=== PATIENT | female | born 1965 | race Caucasian/White ===

== ENCOUNTER → 2016-08-13 | Emergency (ER) | payer OTHER ==
[~2016-08-13] MED LIST: ACETAMINOPHEN/CAFFEINE/BUTALBITAL 1 TAB ONE; ACETAMINOPHEN/CAFFEINE/BUTALBITAL 1 TAB PO ONE; MECLIZINE HCL 25 MG TABLET (FP) ONE; MECLIZINE HCL 25 MG TABLET (FP) PO ONE; ONDANSETRON 4 MG/2 ML VIAL IVPB ONE; ONDANSETRON 4 MG/2 ML VIAL ONE; SODIUM CHLORIDE 1,000 ML IV STA
[2016-08-13 19:09] VITALS: BP 124/85; PULSE 82; TEMP 98; BMI 24.5
[2016-08-13 21:05] LABS: BASOPHIL 0.8 % (0-2.0); EOSINOPHIL 1.8 % (0-4.5); MCHC 32.8 g/dl (32.0-36.0); MEAN CELL VOLUME 82.3 fl (80-96); MEAN PLT VOLUME 10.4 fl (7.5-11.1); NEUTROPHILS 77.6 % (42.8-82.8); PLATELET COUNT 198 K/MM3 (134-434); RDW 13.7 % (11.6-15.6); WHITE BLOOD COUNT 8.8 K/mm3 (4.0-10.0)
[2016-08-13 21:53] LABS: ALBUMIN 3.7 g/dl (3.4-5.0); ALK PHOS 91 U/L (45-117); ANION GAP 10 (8-16); BILIRUBIN,TOTAL 0.4 mg/dL (0.2-1.0); CALCIUM 8.8 mg/dL (8.5-10.1); CO2 26 mmol/L (21-32); CREATININE 0.7 mg/dL (0.55-1.02); GLUCOSE,RANDOM 93 mg/dL (74-106); SGOT/AST 18 U/L (15-37); SGPT/ALT 26 U/L (12-78); TOT PROT 7.2 g/dl (6.4-8.2)
--- NOTE | 2016-08-13 22:13 | PDOC ---
History of Present Illness - General Chief Complaint: Migraine Headache Stated Complaint: DIZZY/HEADACHE/NAUSEA Time Seen by Provider: 08/13/16 19:58 History Source: Patient, Family Exam Limitations: Language Barrier - History of Present Illness Initial Comments: 08/13/16 22:08 51yo Female patient w/ PmHx: Vertigo presents to ED c/o dizziness, h/a, nausea which began yesterday morning as she got up to cook breakfast. Patient reports symptoms progress with patient having difficulty opening eyes do to "World Spinning." Last episode has been over 1 year ago. she denies fever, CP, Abd pain , back pain, diff breathing, rash, dysuria, hematuria, rectal bleeding, or any other complaints at this time. Associated Symptoms: reports: trouble walking, other (Room spinning). denies: slurred speech Past History - Travel Traveled outside of the country in the last 30 days: No Close contact w/someone who was outside of country & ill: No - Past Medical History Allergies/Adverse Reactions: Allergies Allergy/AdvReac Type Severity Reaction Status Date / Time No Known Allergies Allergy Verified 08/13/16 19:10 Home Medications: Ambulatory Orders Butalbit/Acetamin/Caff/Codeine [Fioricet-Cod [id number] Cap] 1 each PO Q6H PRN #20 capsule MDD 4 CAP 08/14/16 Meclizine HCl [Antivert -] 25 mg PO TID #21 tablet 08/14/16 Metoclopramide HCl [Reglan -] 10 mg PO Q8H PRN #30 tablet 08/14/16 - Psycho/Social/Smoking Cessation Hx Suicidal Ideation: No Smoking History: Never smoked Have you smoked in the past 12 months: No Information on smoking cessation initiated: No Hx Alcohol Use: No Drug/Substance Use Hx: No Neuro Specific PMHX - Complaint Specific PMHX Glaucoma: No Herniated Disk: No Laminectomy: No Migraine: No Multiple Sclerosis: No Neuropathy: No TIA: No Review of Systems - Review of Systems Able to Perform ROS?: Yes Is the patient limited Sinhala proficient: Yes Constitutional: No: Chills, Fever, Loss of Appetite, Malaise, Weakness HEENTM: No: Blurred Vision, Double Vision, Ear Pain, Ear Discharge, Throat Pain , Throat Swelling, Difficulty Swallowing, Mouth Swelling Respiratory: No: Cough, Orthopnea, Shortness of Breath, Stridor, Wheezing, Productive cough Cardiac (ROS): No: Chest Pain, Edema, Lightheadedness, Palpitations, Syncope, Chest Tightness ABD/GI: No: Constipated, Diarrhea, Nausea, Poor Appetite, Poor Fluid Intake, Vomiting : No: Burning, Dysuria, Flank Pain, Hematuria, Pain Musculoskeletal: No: Back Pain, Joint Pain, Muscle Weakness, Neck Pain Integumentary: No: Erythema, Rash Neurological: Yes: Dizziness. No: Headache, Numbness, Paresthesia, Seizure, Tingling, Tremors, Weakness, Unsteady Gait, Ataxia All Other Systems: Reviewed and Negative *Physical Exam - Vital Signs Last Vital Signs Temp Pulse Resp BP Pulse Ox 98.0 F 82 18 124/85 99 08/13/16 19:06 08/13/16 19:06 08/13/16 19:06 08/13/16 19:06 08/13/16 19:06 - Physical Exam General Appearance: Yes: Nourished, Appropriately Dressed, Mild Distress. No: Apparent Distress, Moderate Distress, Severe Distress HEENT: positive: EOMI, SHANNON, Normal ENT Inspection, Normal Voice, Symmetrical, TMs Normal, Pharynx Normal. negative: Pharyngeal Erythema, Tonsillar Exudate, Tonsillar Erythema, Nasal Congestion, Rhinorrhea, Sinus Tenderness, TM Bulging, TM Dull, TM Erythema Neck: positive: Trachea midline, Supple. negative: Stridor, Lymphadenopathy (R) , Lymphadenopathy (L) Respiratory/Chest: positive: Lungs Clear, Normal Breath Sounds. negative: Respiratory Distress, Accessory Muscle Use, Labored Respiration, Rapid RR, Stridor, Wheezing Cardiovascular: positive: Regular Rhythm, Regular Rate. negative: Edema, JVD, Murmur Gastrointestinal/Abdominal: positive: Normal Bowel Sounds, Soft. negative: Distended, Guarding, Rebound, Tenderness Musculoskeletal: positive: Normal Inspection. negative: CVA Tenderness Extremity: positive: Normal Capillary Refill, Normal Inspection, Normal Range of Motion. negative: Pedal Edema, Swelling Integumentary: positive: Normal Color, Dry, Warm Neurologic: positive: medical office assistant II-XII NML intact, Fully Oriented, Alert, Normal Mood/ Affect, Normal Response, Motor Strength 5/5 ED Treatment Course - LABORATORY CBC & Chemistry Diagram: 08/13/16 20:03 08/13/16 20:03 - ADDITIONAL ORDERS Additional order review: Laboratory Results 08/13/16 20:03 Sodium 142 Potassium 4.4 Chloride 106 Carbon Dioxide 26 Anion Gap 10 BUN 21 H Creatinine 0.7 Creat Clearance w eGFR > 60 Random Glucose 93 Calcium 8.8 Total Bilirubin 0.4 AST 18 ALT 26 Alkaline Phosphatase 91 Total Protein 7.2 Albumin 3.7 08/13/16 20:03 RBC 5.00 MCV 82.3 MCHC 32.8 RDW 13.7 MPV 10.4 Neutrophils % 77.6 Lymphocytes % 13.9 Monocytes % 5.9 Eosinophils % 1.8 Basophils % 0.8 - Medications Given in the ED: ED Medications Discontinued Medications Generic Name Dose Route Start Last Admin Trade Name Freq PRN Reason Stop Dose Admin Sodium Chloride 1,000 mls @ 1,000 mls/hr 08/13/16 20:30 08/13/16 20:58 Normal Saline - IV 08/13/16 21:29 1,000 mls/hr ASDIR STA Administration Meclizine HCl 50 mg 08/13/16 20:31 08/13/16 20:59 Antivert - PO 08/13/16 20:32 50 mg ONCE ONE Administration Ondansetron HCl 8 mg 08/13/16 20:31 08/13/16 20:59 Zofran Injection IVPB 08/13/16 20:32 8 mg ONCE ONE Administration *DC/Admit/Observation/Transfer Diagnosis at time of Disposition: Benign paroxysmal positional vertigo Qualifiers: Laterality: bilateral Qualified Code(s): H81.13 - Benign paroxysmal vertigo, bilateral - Discharge Dispostion Disposition: HOME Condition at time of disposition: Improved Admit: No - Prescriptions Prescriptions: Meclizine HCl [Antivert -] 25 mg PO TID #21 tablet Butalbit/Acetamin/Caff/Codeine [Fioricet-Cod [id number] Cap] 1 each PO Q6H PRN #20 capsule MDD 4 CAP PRN Reason: SEVERE HEADACHE Metoclopramide HCl [Reglan -] 10 mg PO Q8H PRN #30 tablet PRN Reason: Nausea - Referrals Referrals: Mohan Lovett MD [Primary Care Provider] - Naz Dillon MD [Staff Physician] - Sukhwinder Moctezuma MD [Staff Physician] - - Patient Instructions Printed Discharge Instructions: Benign Paroxysmal Positional Vertigo Additional Instructions: FOLLOW UP WITH DR. DILLON (NEUROLOGY). CALL TO SCHEDULE APPOINTMENT. ALSO, FOLLOW UP WITH DR. MOCTEZUMA (ENT) REGARDING VERTIGO. TAKE MEDICATIONS PRESCRIBED. RETURN IF SYMPTOMS WORSEN, OR ANY CONCERNS FOR FURTHER EVALUATION. NO WORK X 3 DAYS WITH REST. DRINK PLENTY FLUIDS. SEGUIMIENTO CON EL DR. DILLON (NEUROLOGA). LLAMAR PARA CALIFICAR LA JOSE D. DARIEN Ash, SEGUIMIENTO CON EL DR. MOCTEZUMA (ENT) EN RELACIN CON VERTIGO. GENNARO MEDICAMENTOS CINDY SE PRESCRIBE. DEVUELVA SI SNTOMAS WORSEN, O CUALESQUIERA PREOCUPACIONES PARA LA EVALUACIN ADICIONAL. NO TRABAJO X 3 SEGOVIA CON BRITT. DAJUAN LOS FLUIDOS DEL PLENTY. Print Language: VIETNAMESE - Post Discharge Activity Work/School Note: Back to Work
== END | disposition home or self-care (01) ==
LOC: JER 19:01
PROC: 3E033GC Introduction of Other Therapeutic Substance into Peripheral Vein, Percutaneous Approach (ICD-10-PCS; principal; 2016-08-13)
DX: H81.13 Benign paroxysmal vertigo, bilateral (principal)
CPT/HCPCS: 36415; 70450-TC; 80053; 85025; 96374; 99281-25

== ENCOUNTER 2017-02-06 07:00 | Day surgery (SDC) | payer OTHER ==
[2017-01-30 11:15] VITALS: BMI 27.9
--- NOTE | 2017-02-06 08:19 | HP ---
Admitting History and Physical - Admission Chief Complaint: Postmenopausal bleeding History of Present Illness: 51 yo with postmenopausal bleeding associated with abnormal sonogram is pre op for D&C Hysteroscopy. History Source: Patient Limitations to Obtaining History: No Limitations - Past Medical History ...LMP: 01/07/17 ...: No Heme/Onc: No: Anemia - Past Surgical History Past Surgical History: Yes: None - Smoking History Smoking history: Never smoked Have you smoked in the past 12 months: No - Alcohol/Substance Use Hx Alcohol Use: No History of Substance Use: reports: None - Social History History of Recent Travel: No Home Medications - Allergies Allergies/Adverse Reactions: Allergies Allergy/AdvReac Type Severity Reaction Status Date / Time No Known Allergies Allergy Verified 01/30/17 11:06 - Home Medications Home Medications: Ambulatory Orders NK [No Known Home Medication] 01/30/17 Review of Systems - Review of Systems Constitutional: reports: No Symptoms Eyes: reports: No Symptoms HENT: reports: No Symptoms Neck: reports: No Symptoms Cardiovascular: reports: No Symptoms Respiratory: reports: No Symptoms Gastrointestinal: reports: No Symptoms Genitourinary: reports: No Symptoms Breasts: reports: No Symptoms Reported Musculoskeletal: reports: No Symptoms Integumentary: reports: No Symptoms Neurological: reports: No Symptoms Endocrine: reports: No Symptoms Hematology/Lymphatic: reports: No Symptoms Psychiatric: reports: No Symptoms Pain Intensity: 0 Physical Examination Vital Signs: Vital Signs Temperature 98.2 F 02/06/17 07:37 Pulse Rate 72 02/06/17 07:37 Respiratory Rate 18 02/06/17 07:37 Blood Pressure 113/72 02/06/17 07:37 O2 Sat by Pulse Oximetry (%) 99 02/06/17 07:37 Constitutional: Yes: Well Nourished Eyes: Yes: Conjunctiva Clear HENT: Yes: Atraumatic Neck: Yes: Supple Cardiovascular: Yes: Regular Rate and Rhythm Respiratory: Yes: Regular Gastrointestinal: Yes: Normal Bowel Sounds Breast(s): Yes: WNL Musculoskeletal: Yes: WNL Extremities: Yes: WNL Neurological: Yes: Alert, Oriented ...Motor Strength: WNL Psychiatric: Yes: Alert, Oriented Problem List - Problems (1) Endometrial polyp Code(s): N84.0 - POLYP OF CORPUS UTERI Assessment/Plan Pre op for D&C Hysteroscopy Consent signed Anesthesia to see patient
[2017-02-06] MEDS ORDERED: MIDAZOLAM HCL 2 MG/2 ML SINGLE DOSE VIAL ONE (08:26)
[2017-02-06] MEDS ORDERED: PROPOFOL 20 ML ONE (08:26)
[2017-02-06] MEDS ORDERED: DEXAMETHASONE SOD PHOSPHATE 4 MG/1 ML VIAL ONE (08:29)
--- NOTE | 2017-02-06 08:46 | OP ---
Operative Note - Note: Operative Date: 02/06/17 Pre-Operative Diagnosis: Postmenopausal bleeding Operation: D&C Hysteroscopy Findings: Endometrial polyp Post-Operative Diagnosis: Other (Endometrial polyp) Surgeon: Amber Quinteros Anesthesia: General Specimens Removed: Endometrial curettings Estimated Blood Loss (mls): 5 Operative Report Dictated: Yes
[2017-02-06] MEDS ORDERED: ceFAZolin SODIUM 1 GM VIAL ONE (09:26)
[2017-02-06] MEDS ORDERED: KETOROLAC TROMETHAMINE 30 MG/1 ML VIAL ONE (09:30)
[2017-02-06 10:08] VITALS: TEMP 97.5
[2017-02-06] MEDS ORDERED: oxyCODONE HCL 5 MG TABLET PO PRN ×2 (10:08)
[2017-02-06] MEDS ORDERED: ONDANSETRON 4 MG/2 ML VIAL IVPUSH PRN (10:08)
[2017-02-06] MEDS ORDERED: LACTATED RINGERS SOLUTION 1,000 ML IV SCH (10:15)
[2017-02-06 10:43] VITALS: BP 139/73; PULSE 69
--- NOTE | 2017-02-07 07:26 | OP ---
DATE OF OPERATION: 02/06/2017 PREOPERATIVE DIAGNOSES: Postmenopausal bleeding, endometrial polyp. POSTOPERATIVE DIAGNOSIS: Endometrial polyp. PROCEDURE: Dilatation and curettage, hysteroscopy. SURGEON: Amber Quinteros MD ANESTHESIA: General. COMPLICATIONS: None. ESTIMATED BLOOD LOSS: 5 mL. PROCEDURE: Patient was taken to the operating room where general anesthesia was administered. Patient was then placed in lithotomy position. She was then prepped and draped in proper sterile fashion. A weighted speculum was placed in the vagina. The anterior lip of the cervix was grasped with a single-tooth tenaculum. The uterus was sounded to 9 cm. Then, a 5-mm hysteroscope was then gently introduced into the uterine cavity. The cavity was visualized. Both ostia were visualized. There was evidence of endometrial polyp in the cavity. Then, the cervical os was then sequentially dilated with Pelaez dilators and a sharp curettage was then performed. Then, specimen was sent to Pathology. When finished, the instruments were removed. The patient was taken out of lithotomy position. She was taken to PACU in stable condition. PATHOLOGY: Endometrial curettings. Karen [id number]
--- NOTE | 2017-02-07 11:59 | PATH ---
Surgical Pathology Report Patient Name: AUGUSTA SOSA [facility]. Rec. #: [id number] /Age/Gender: 1965 (Age: 51) / F Account: [id number] Location: [facility] SURGICAL Taken: 02/06/2017 Received: 02/06/2017 Reported: 02/07/2017 Physicians: Amber Quinteros M.D. Specimen(s) Received ENDOMETRIAL CURETTINGS Clinical History Endometrial polyp Postmenopausal bleeding Final Diagnosis ENDOMETRIUM, CURETTING: ENDOMETRIUM WITH STROMAL AND GLANDULAR BREAKDOWN. BENIGN ENDOCERVICAL TISSUE WITH AREAS SUGGESTIVE OF BENIGN ENDOCERVICAL POLYP PRESENT. NO ENDOMETRIAL HYPERPLASIA OR CARCINOMA IDENTIFIED. Electronically Signed Francisco Shrap M.D. Gross Description Received in formalin labelled "endometrial curetting" is a 1 x 1 x 0.2 cm aggregate of hemorrhagic tissue fragments. Totally submitted in one cassette. [facility]/02/06/2017 [facility]/02/06/2017
== END 2017-02-06 11:57 | disposition home or self-care (01) ==
LOC: JASU-SURG 07:00
PROVIDERS: ATTEND Obstetrics & Gynecology
PROC: 0UDB8ZX Extraction of Endometrium, Via Natural or Artificial Opening Endoscopic, Diagnostic (ICD-10-PCS; principal; 2017-02-06 08:30)
DX: N95.0 Postmenopausal bleeding (principal); N84.0 Polyp of corpus uteri
CPT/HCPCS: 84703; 88305-TC; 94760